=== PATIENT | male | born 2000 | race Caucasian/White ===

== ENCOUNTER 2019-02-01 14:05 | Emergency (ER) | payer MEDICAID ==
[2019-02-01] MEDS ORDERED: LIDOCAINE 1% 2 ML VIAL MC ONE (15:23)
[2019-02-01] MEDS ORDERED: cefTRIAXone 1 GM VIAL IM STA (15:23)
--- NOTE | 2019-02-01 15:26 | ED Physician Documentation ---
History of Present Illness - Stated complaint Stated Complaint: FOOT INFECTION - Chief complaint Chief Complaint: Ext Problem - History obtained from History obtained from: Patient - History of Present Illness Timing: How many days ago (3) - Additonal information Additional information: The patient is a 18-year-old male who presents with pain and swelling of his right ankle, gradually increasing over the past 3 days. He denies any traumatic injury. He has noticed redness and swelling at the lateral aspect of the ankle. It has become increasingly painful to bear weight on his right foot. He denies fever or shortness of breath. He denies history of similar symptoms in the past. He is not diabetic. He denies IV drug use, and has no history of MRSA. Review of Systems Constitutional: denies: Fever Nose: denies: Congestion Throat: denies: Sore throat Cardiac: denies: Chest pain / pressure Respiratory: denies: Dyspnea, Cough GI: denies: Abdominal Pain, Nausea, Vomiting : denies: Dysuria Skin: reports: Abrasion (s) (Right ankle.) Musculoskeletal: reports: Extremity pain (Right foot and ankle.) Neurologic: denies: Focal weakness, Numbness, Headache PD PAST MEDICAL HISTORY - Past Medical History Endocrine/Autoimmune: None Psych: ADD/ADHD - Past Surgical History Past Surgical History: Yes Ortho: Other (right wrist) - Present Medications Home Medications: Ambulatory Orders Medication Instructions Recorded Confirmed Ibuprofen [Ibu] 800 mg PO TID PRN #30 tablet 02/01/19 cephALEXin [Cephalexin] 500 mg PO QID #28 tablet 02/01/19 - Allergies Allergies/Adverse Reactions: Allergies Allergy/AdvReac Type Severity Reaction Status Date / Time amoxicillin [Amoxicillin] Allergy Rash Verified 02/01/19 14:24 - Social History Does the pt smoke?: No Smoking Status: Never smoker Does the pt drink ETOH?: No Does the pt have substance abuse?: No - Immunizations Immunizations are current?: Yes - POLST Patient has POLST: No PD ED PE NORMAL - Vitals Vital signs reviewed: Yes (Normal) - General General: Alert and oriented X 3, Well developed/nourished - HEENT HEENT: Atraumatic, Pharynx benign - Neck Neck: No adenopathy - Cardiac Cardiac: RRR - Respiratory Respiratory: No respiratory distress, Clear bilaterally - Abdomen Abdomen: Soft, Non tender - Back Back: No CVA TTP - Derm Derm: No rash - Extremities Extremities: No calf tenderness / cord, Other (There is erythema and slight swelling at the lateral aspect of the right ankle, with associated tenderness to palpation. There is a superficial abrasion. Distal neurovascular is intact.) - Neuro Neuro: Alert and oriented X 3, No motor deficit, No sensory deficit Results - Vitals Vitals: Vital Signs - 24 hr 02/01/19 02/01/19 14:19 15:46 Temperature 36.7 C Heart Rate 95 87 Respiratory 18 16 Rate Blood Pressure 126/67 115/76 O2 Saturation 99 100 Oxygen O2 Source Room air PD MEDICAL DECISION MAKING - ED course Complexity details: re-evaluated patient, considered differential, d/w patient ED course: The patient's presentation is most consistent with superficial cellulitis right ankle, with associated abrasion. There is no evidence of abscess or lymphangitic streaking. Treatment in the emergency room included administration of ceftriaxone 1 g IM. He is being discharged with prescription for cephalexin. I discussed with him the expected course of illness, antibiotic treatment and outpatient follow-up, as well as potentially worrisome signs or symptoms that should prompt reevaluation in the emergency department. Departure - Departure Disposition: Home, Self Care Clinical Impression: Cellulitis Qualifiers: Site of cellulitis: extremity Site of cellulitis of extremity: lower extremity Laterality: right Qualified Code(s): L03.115 - Cellulitis of right lower limb Condition: Stable Instructions: ED Infec Skin Cellulitis Follow-Up: [facility] [Provider Group] Prescriptions: cephALEXin [Cephalexin] 500 mg PO QID #28 tablet Ibuprofen [Ibu] 800 mg PO TID PRN #30 tablet PRN Reason: Pain Comments: Keep your right foot elevated as much the time as possible. Take cephalexin 4 times daily as prescribed. You can use ibuprofen up to 800 mg 3 times daily for anti-inflammatory effect. Follow-up with primary physician within 1 week. Call to schedule appointment. Return to the emergency department if you develop increasing redness, swelling, pain, or otherwise worsening symptoms. Discharge Date/Time: 02/01/19 15:53
[2019-02-01] MEDS ORDERED: IBUPROFEN 800 MG TABLET PO STA (15:36)
[2019-02-01 15:48] VITALS: BP 115/76
== END 2019-02-01 15:53 | disposition home or self-care (01) ==
LOC: ED 14:05
DX: S90.511A Abrasion, right ankle, initial encounter (principal); L03.115 Cellulitis of right lower limb
CPT/HCPCS: 96372; 99283; 99284; A9270

== ENCOUNTER 2019-07-16 23:11 | Outpatient (CLI) | payer MEDICAID | END 2019-07-16 23:12 | disposition critical access hospital (66) | LOC: EMS 23:11 | PROVIDERS: ATTEND Surgery | DX: S61.210A Laceration without foreign body of right index finger without damage to nail, initial encounter (principal); W45.8XXA Other foreign body or object entering through skin, initial encounter | CPT/HCPCS: A0425; A0429 ==

== ENCOUNTER 2019-07-16 23:28 | Emergency (ER) | payer MEDICAID ==
[2019-07-16 23:33] VITALS: BP 137/73
== END 2019-07-17 00:48 | disposition left against medical advice (07) ==
LOC: EDUNIT# → ED 23:28
DX: Z53.21 Procedure and treatment not carried out due to patient leaving prior to being seen by health care provider (principal)

== ENCOUNTER 2019-09-08 15:40 | Emergency (ER) | payer MEDICAID ==
[2019-09-08] MEDS ORDERED: LIDOCAINE 2%-EPI 1:100000 20 ML MDV SUBQ STA (16:32)
[2019-09-08] MEDS ORDERED: oxyCODONE 5 MG TABLET PO STA (16:32)
[2019-09-08] MEDS ORDERED: cephALEXin 250 MG CAPSULE PO STA (16:32)
[2019-09-08] MEDS ORDERED: SULFAMETH/TRIMETH DS 800/160 MG TABLET PO STA (16:32)
[2019-09-08] MEDS ORDERED: TETANUS/DIPHTHERIA/PERTUSSIS 0.5 ML SYRINGE IM ONE (16:34)
--- NOTE | 2019-09-08 16:34 | ED Physician Documentation ---
History of Present Illness - Stated complaint Stated Complaint: LT LEG PX - Chief complaint Chief Complaint: Wound - History obtained from History obtained from: Patient - History of Present Illness Timing: How many days ago (several days) Pain level max: 6 Pain level now: 5 - Additonal information Additional information: L leg wound for past several days, increasing redness, swelling. no drainage. No fevers. No nausea or vomiting. No abdominal pain. Denies any IV drug use. Denies any IM/SQ drug use. Review of Systems Constitutional: denies: Fever, Chills GI: denies: Vomiting, Diarrhea Skin: denies: Rash Neurologic: denies: Headache PD PAST MEDICAL HISTORY - Past Medical History Past Medical History: Yes Endocrine/Autoimmune: None Psych: ADD/ADHD - Past Surgical History Past Surgical History: Yes Ortho: Other (right wrist) - Present Medications Home Medications: Ambulatory Orders Medication Instructions Recorded Confirmed Cephalexin [Keflex] 500 mg PO Q6H #28 capsule 09/08/19 Sulfamethox/Trimeth 800/160 1 each PO BID #14 tablet 09/08/19 [Bactrim Ds 800/160] - Allergies Allergies/Adverse Reactions: Allergies Allergy/AdvReac Type Severity Reaction Status Date / Time amoxicillin [Amoxicillin] Allergy Rash Verified 07/16/19 23:29 - Social History Does the pt smoke?: No Smoking Status: Never smoker Does the pt drink ETOH?: No Does the pt have substance abuse?: No - Immunizations Immunizations are current?: Yes - POLST Patient has POLST: No PD ED PE NORMAL - Vitals Vital signs reviewed: Yes - General General: Alert and oriented X 3, No acute distress - HEENT HEENT: Moist mucous membranes - Neck Neck: Supple, no meningeal sign - Derm Derm: Warm and dry - Extremities Extremities: Other (L thigh - 9x9 cm area erythema with central induration. NVI. no drainage. ) - Neuro Neuro: Alert and oriented X 3 Results - Vitals Vitals: Vital Signs - 24 hr 09/08/19 09/08/19 15:54 17:10 Temperature 37.4 C 36.8 C Heart Rate 97 105 H Respiratory 18 16 Rate Blood Pressure 129/65 126/55 L O2 Saturation 100 98 Oxygen O2 Source Room air Procedures - Abscess I&D (location) L thigh Preparation: Confirmed with ultrasound, Chlorhexadine, Alcohol, Lidocaine 2 %, With epi Incision: Incised with scalpel, Purulent drainage, Culture obtained Other: Pt tolerated well, Antibiotic prescribed PD MEDICAL DECISION MAKING - ED course Complexity details: considered differential, d/w patient, d/w family ED course: 18-year-old male with an abscess to the thigh. This is incised and drained. Tolerated well. Significant cellulitis. Will place on oral antibiotics as well. Patient is well-appearing, nontoxic. Afebrile. Patient counseled regarding signs and symptoms for which I believe and urgent re-evaluation would be necessary. Patient with good understanding of and agreement to plan and is comfortable going home at this time This document was made in part using voice recognition software. While efforts are made to proofread this document, sound alike and grammatical errors may occur. Departure - Departure Disposition: 01 Home, Self Care Clinical Impression: Abscess Cellulitis Qualifiers: Site of cellulitis: extremity Site of cellulitis of extremity: lower extremity Laterality: left Qualified Code(s): L03.116 - Cellulitis of left lower limb Condition: Good Instructions: ED Abscess IandD, ED Infec Skin Cellulitis Follow-Up: your,doctor in 1 week [Other] Prescriptions: Cephalexin [Keflex] 500 mg PO Q6H #28 capsule Sulfamethox/Trimeth 800/160 [Bactrim Ds 800/160] 1 each PO BID #14 tablet Comments: Return if you worsen. Take all antibiotics until gone. Keep the area clean. Discharge Date/Time: 09/08/19 17:16
[2019-09-08 17:10] VITALS: BP 126/55
== END 2019-09-08 17:16 | disposition home or self-care (01) ==
LOC: ED 15:40
DX: L02.416 Cutaneous abscess of left lower limb (principal); L03.116 Cellulitis of left lower limb
CPT/HCPCS: 10060; 90471; 90715; 99283; 99284; A9270

== ENCOUNTER 2019-09-29 10:06 | Observation (INO) | payer MEDICAID ==
[2019-09-29] MEDS ORDERED: oxyCODONE 5 MG TABLET PO STA (10:17)
[2019-09-29] MEDS ORDERED: IBUPROFEN 800 MG TABLET PO STA (10:17)
--- NOTE | 2019-09-29 10:22 | ED Physician Documentation ---
PD HPI MAJOR TRAUMA - Stated complaint Stated Complaint: RIB PX - History obtained from History obtained from: Patient - History of Present Illness Mechanism of injury: Blow (Previously healthy 18-year-old gentleman fell while skateboarding earlier this morning and sustained injuries to the right lateral lower chest wall and right upper abdomen. No other injuries. No head or neck injury. Pain is severe. Pain is worse if he takes a deep breath. Tetanus is up-to-date.) Review of Systems Constitutional: denies: Fever, Chills Ears: denies: Loss of hearing, Ear pain Nose: denies: Rhinorrhea / runny nose, Congestion Throat: denies: Sore throat Cardiac: reports: Chest pain / pressure. denies: Palpitations Respiratory: denies: Dyspnea, Cough PD PAST MEDICAL HISTORY - Past Medical History Endocrine/Autoimmune: None Psych: ADD/ADHD - Past Surgical History Past Surgical History: Yes Ortho: Other (right wrist) - Allergies Allergies/Adverse Reactions: Allergies Allergy/AdvReac Type Severity Reaction Status Date / Time amoxicillin [Amoxicillin] Allergy Rash Verified 09/29/19 10:22 - Social History Does the pt smoke?: No Smoking Status: Never smoker Does the pt drink ETOH?: No Does the pt have substance abuse?: No - Immunizations Immunizations are current?: Yes - POLST Patient has POLST: No PD ED PE NORMAL - Vitals Vital signs reviewed: Yes - General General: Alert and oriented X 3, No acute distress - HEENT HEENT: PERRL, EOMI - Neck Neck: Supple, no meningeal sign, No bony TTP - Cardiac Cardiac: RRR, No murmur - Respiratory Respiratory: Other (Relatively symmetric breath sounds but diminished because of splinting, there is a abrasion on the right lateral low chest wall/upper abdomen and he is tender in the right upper quadrant.) - Abdomen Abdomen: Normal bowel sounds, Soft - Back Back: No CVA TTP, No spinal TTP - Derm Derm: Normal color, Warm and dry - Extremities Extremities: No deformity, No tenderness to palpate, Normal ROM s pain, No edema, No calf tenderness / cord - Neuro Neuro: Alert and oriented X 3, Normal speech Results - Vitals Vitals: Vital Signs - 24 hr 09/29/19 09/29/19 10:12 11:11 Temperature 36.9 C Heart Rate 83 83 Respiratory 16 15 Rate Blood Pressure 120/69 120/78 O2 Saturation 100 100 Oxygen O2 Source Room air - Labs Labs: Laboratory Tests 09/29/19 09/29/19 09/29/19 10:45 11:15 11:15 WBC 6.0 RBC 4.30 L Hgb 13.4 L Hct 40.8 L MCV 94.9 H MCH 31.2 H MCHC 32.8 RDW 12.6 Plt Count 173 MPV 9.1 Neut # (Auto) 4.2 Lymph # (Auto) 1.2 L [place] # (Auto) 0.6 Eos # (Auto) 0.1 Baso # (Auto) 0.0 Absolute Nucleated RBC 0.00 Nucleated RBC % 0.0 Sodium 131 L Potassium 3.3 L Chloride 100 L Carbon Dioxide 24 Anion Gap 7.0 BUN 15 Creatinine 1.0 Estimated GFR (MDRD) 96 Glucose 103 H Calcium 8.6 Total Bilirubin 0.3 AST 48 H ALT 41 Alkaline Phosphatase 53 Total Protein 6.5 L Albumin 3.9 Globulin 2.6 Albumin/Globulin Ratio 1.5 Lipase 20 L Blood Type A POSITIVE Antibody Screen NEGATIVE - Rads (name of study) CT chest abdomen and pelvis Radiology: EMP read contemporaneously (Grade 1 liver laceration with some bleeding near 2 broken ribs, ninth and 10th. No pneumothorax.) PD MEDICAL DECISION MAKING - ED course ED course: 18-year-old healthy gentleman with small liver laceration and rib fracture from a fall from a skateboard. No evidence of head or neck or other injury. Spoke with Dr. Danielle, the on-call surgeon for observation at 11:20 AM. Departure - Departure Disposition: ED Place in Observation Clinical Impression: Liver laceration Qualifiers: Encounter type: initial encounter Qualified Code(s): S36.113A - Laceration of liver, unspecified degree, initial encounter Rib fracture Qualifiers: Encounter type: initial encounter Rib fracture type: multiple ribs Fracture type: closed Laterality: right Qualified Code(s): S22.41XA - Multiple fractures of ribs, right side, initial encounter for closed fracture Condition: Stable
[2019-09-29] MEDS ORDERED: IOVERSOL 320 100 ML VIAL IVP ONE ×2 (10:47→11:35)
[2019-09-29 11:22] LABS: BASOPHILS % (AUTO) 0.5 %; EOSINOPHILS # (AUTO) 0.1 10^3/uL (0.0-0.7); HGB - HEMOGLOBIN 13.4 g/dL (14.0-18.0); LYMPHOCYTES # (AUTO) 1.2 10^3/uL (1.5-3.5); LYMPHOCYTES % (AUTO) 19.4 %; MEAN CORPUSCULAR HEMOGLOBIN 31.2 pg (27.0-31.0); MEAN CORPUSCULAR HGB CONC 32.8 g/dL (32.0-36.0); MEAN CORPUSCULAR VOLUME 94.9 fL (80.0-94.0); MEAN PLATELET VOLUME 9.1 fL (7.4-11.4); MONOCYTES # (AUTO) 0.6 10^3/uL (0.0-1.0); MONOCYTES % (AUTO) 9.1 %; NEUTROPHILS # (AUTO) 4.2 10^3/uL (1.5-6.6); NEUTROPHILS % (AUTO) 69.7 %; PLT - PLATELET COUNT 173 10^3/uL (130-450); RED CELL DISTRIBUTION WIDTH 12.6 % (12.0-15.0)
[2019-09-29 11:35] LABS: ALBUMIN 3.9 g/dL (3.2-5.5); ALBUMIN/GLOBULIN RATIO 1.5 (1.0-2.2); BILIRUBIN,TOTAL 0.3 mg/dL (0.2-1.0); CALCIUM 8.6 mg/dL (8.5-10.3); TOTAL PROTEIN 6.5 g/dL (6.7-8.2)
--- NOTE | 2019-09-29 12:07 | CT Report ---
Reason: Right chest wall and abdominal trauma Procedure Date: 09/29/2019 Accession Number: [id number] / [id number] Procedure: CT - Abdomen/Pelvis W CPT Code: Final Report FULL RESULT: EXAM: CT CHEST, ABDOMEN AND PELVIS EXAM DATE: 09/29/2019 11:18 AM. CLINICAL HISTORY: Right chest wall and abdominal trauma. COMPARISONS: CHEST W/ 09/29/2019 10:56 AM. TECHNIQUE: Routine helical CT imaging was performed through the chest, abdomen, and pelvis. IV contrast: 100 mL Optiray 320. Enteric contrast: No. Reconstructions: Coronal and sagittal. In accordance with CT protocol optimization, one or more of the following dose reduction techniques were utilized for this exam: automated exposure control, adjustment of mA and/or KV based on patient size, or use of iterative reconstructive technique. FINDINGS: Lungs/Pleura: Small amount of dependent changes at the right lung base. No nodules, bronchial thickening, consolidation, or edema. Pulmonary vasculature is normal. No effusions or pneumothorax. Mediastinum: Normal. No adenopathy or masses. Liver: Grade 1 laceration without convincing evidence of active extravasation along the lateral aspect of the right lobe. Gallbladder/Bile Ducts: Unremarkable. Spleen: Normal. Pancreas: Normal. Adrenal Glands: Normal. Kidneys: Normal. No masses or hydronephrosis. Peritoneal Cavity/Bowel: Normal. No free fluid, free air or adenopathy. No masses or acute inflammatory process. Pelvic Organs: Normal. The bladder and visualized pelvic organs are within normal limits. Vasculature: No great vessel injury. There is active extravasation of contrast along the superficial surface within the lateral abdominal wall musculature near the tip of the right 11th rib. No significant associated hematoma is seen as yet. Bones: Fractures of the lateral 9th and 10th right ribs, minimally displaced. Other: None. IMPRESSION: Grade 1 liver laceration. Active extravasation of contrast along the lateral musculoskeletal chest wall near the anterior portion of the 11th rib, no significant hematoma at this site as yet. Minimally displaced fractures of the lateral right 9th and 10th ribs. CRITICAL RESULT: The findings were discussed with Dr. Grullon on 09/29/2019 at 11:20 AM, real-time interpretation and communication during imaging acquisition with decision to obtain delay scans. [facility]
[2019-09-29] MEDS ORDERED: HYDROmorphone 1 MG/ML CARPUJECT IVP STA (12:37)
--- NOTE | 2019-09-29 12:47 | HISTORY & PHYSICAL EXAMINATION ---
Chief Complaint - Chief Complaint Chief Complaint: Right chest pain History of Present Illness - Admitted From Admitted From:: ED - History Obtained From Records Reviewed: Provider's notes History obtained from: Patient and providers Exam Limitations: Patient has recieved pain medication and is lethergic - History of Present Illness HPI Comment/Other: Healthy 18 year old man who was riding a skate board this AM when he fell, striking his chest. Did not strike his head. Denies any loss of consciousness. Arrived complaining of right lower rib pain. Evaluation in the ED revealed a small liver laceration and a right rib fracture. I have been consulted for management. 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 : reports: None HEENT: reports: None Psych: reports: ADD/ADHD Musculoskeletal: reports: None Derm: reports: None MRSA Hx?: No - Past Surgical History Ortho: reports: Other (right wrist) - POLST Patient has POLST: No Meds/Allgy - Allergies Allergies/Adverse Reactions: Allergies Allergy/AdvReac Type Severity Reaction Status Date / Time amoxicillin [Amoxicillin] Allergy Rash Verified 09/29/19 10:22 Review of Systems - Constitutional Constitutional: denies: Fatigue, Fever, Chills - Eyes Eyes: denies: Pain, Irritation, Amaurosis, Blurred vision - Ears, Nose & Throat Ears, Nose & Throat: denies: Tinnitus, Vertigo - Cardiovascular Cariovascular: reports: Chest pain. denies: Irregular heart rate, Palpitations, Syncope - Respiratory Respiratory: denies: Cough, Wheezing - Gastrointestinal Gastrointestinal: reports: Abdominal pain - Genitourinary Genitourinary: denies: Dysuria - Musculoskeletal Musculoskeletal: denies: Muscle pain, Back pain - Integumentary Integumentary: denies: Rash - Hematologic/Lymphatic Hematologic/Lymphatic: denies: Anemia - All Other Systems All Other Systems: reports: Reviewed and negative Exam - Vital Signs Reviewed Vital Signs: Yes Vital Signs: Vital Signs x48h Temp Pulse Resp BP Pulse Ox 09/29/19 12:20 77 15 121/67 99 09/29/19 11:11 83 15 120/78 100 09/29/19 10:12 36.9 C 83 16 120/69 100 - Physical Exam General Appearance: positive: No acute distress, Lethargic Eyes Bilateral: positive: Normal inspection, PERRL, EOMI ENT: positive: ENT inspection nml, Pharynx nml, No signs of dehydration Neck: positive: Nml inspection, Thyroid nml, No JVD Respiratory: positive: Breath sounds nml, Other (Chest is tender to palpation along the lower rib margin at mid axillary line on the right. No crepitance.) Cardiovascular: positive: Regular rate & rhythm, No murmur Peripheral Pulses: positive: 2+ Abdomen: positive: Non-tender Back: positive: CVA tenderness (R). negative: CVA tenderness (L) Conclusion/Plan - Problem List (1) Liver laceration Conclusion/Plan: Hemodynamically stable and pain is currently under control. Admit for observation and serial H/H. Will plan for discharge in the AM if he remains stable overnight and we are able to control his discomfort Qualifiers: Encounter type: initial encounter Qualified Code(s): S36.113A - Laceration of liver, unspecified degree, initial encounter - Lab Results Fish Bones: 09/29/19 11:15 09/29/19 11:15 - Diagnostic Imaging Results Diagnostic Imaging Results: positive: Final report reviewed, Discussed with rad iologist Diagnostic Imaging Results Comments: Final Report PT NAME: CORIE KESSLER MR#: [id number] REG ER/ED AGE: 18 CI DT/TM: 09/29/1907/08/1021 PCP: : 2000 ATT: SEX: M ORD: Christopher song MD EXAM: [id number] CT/ABPEW ([id number]) Reason: Right chest wall and abdominal trauma Procedure Date: 09/29/2019 Accession Number: [id number] / [id number] Procedure: CT - Abdomen/Pelvis W CPT Code: Final Report FULL RESULT: EXAM: CT CHEST, ABDOMEN AND PELVIS EXAM DATE: 09/29/2019 11:18 AM. CLINICAL HISTORY: Right chest wall and abdominal trauma. COMPARISONS: CHEST W/ 09/29/2019 10:56 AM. TECHNIQUE: Routine helical CT imaging was performed through the chest, abdomen, and pelvis. IV contrast: 100 mL Optiray 320. Enteric contrast: No. Reconstructions: Coronal and sagittal. In accordance with CT protocol optimization, one or more of the following dose reduction techniques were utilized for this exam: automated exposure control, adjustment of mA and/or KV based on patient size, or use of iterative reconstructive technique. FINDINGS: Lungs/Pleura: Small amount of dependent changes at the right lung base. No nodules, bronchial thickening, consolidation, or edema. Pulmonary vasculature is normal. No effusions or pneumothorax. Mediastinum: Normal. No adenopathy or masses. Liver: Grade 1 laceration without convincing evidence of active extravasation along the lateral aspect of the right lobe. Gallbladder/Bile Ducts: Unremarkable. Spleen: Normal. Pancreas: Normal. Adrenal Glands: Normal. Kidneys: Normal. No masses or hydronephrosis. Peritoneal Cavity/Bowel: Normal. No free fluid, free air or adenopathy. No masses or acute inflammatory process. Pelvic Organs: Normal. The bladder and visualized pelvic organs are within normal limits. Vasculature: No great vessel injury. There is active extravasation of contrast along the superficial surface within the lateral abdominal wall musculature near the tip of the right 11th rib. No significant associated hematoma is seen as yet. Bones: Fractures of the lateral 9th and 10th right ribs, minimally displaced. Other: None. IMPRESSION: Grade 1 liver laceration. Active extravasation of contrast along the lateral musculoskeletal chest wall near the anterior portion of the 11th rib, no significant hematoma at this site as yet. Minimally displaced fractures of the lateral right 9th and 10th ribs. CRITICAL RESULT: The findings were discussed with Dr. Grullon on 09/29/2019 at 11:20 AM, real-time interpretation and communication during imaging acquisition with decision to obtain delay scans. [facility] Deck Scaler: Reading Radiologist: Kai Pro MD Releasing Radiologist: Kai Pro MD Released Date Time: 09/29/191202 Report 120 cc: Christopher Grullon MD ED
[2019-09-29] MEDS ORDERED: ONDANSETRON 4 MG/2 ML VIAL IVP PRN (13:04)
[2019-09-29] MEDS ORDERED: SODIUM CHLORIDE FLUSH 0.9% 10 ML SYRINGE IVP PRN (13:04)
[2019-09-29] MEDS: LACTATED RINGERS 1,000 ML IV SCH (15:25)
[2019-09-29] MEDS: SODIUM CHLORIDE FLUSH 0.9% 10 ML SYRINGE IVP SCH ×2 (17:01→21:31)
[2019-09-29] MEDS: PANTOPRAZOLE 40 MG TABLET PO SCH (17:54)
[2019-09-29 18:25] LABS: BASOPHILS % (AUTO) 0.6 %; EOSINOPHILS # (AUTO) 0.2 10^3/uL (0.0-0.7); HGB - HEMOGLOBIN 13.5 g/dL (14.0-18.0); LYMPHOCYTES # (AUTO) 1.6 10^3/uL (1.5-3.5); LYMPHOCYTES % (AUTO) 31.7 %; MEAN CORPUSCULAR HGB CONC 32.6 g/dL (32.0-36.0); MEAN PLATELET VOLUME 8.9 fL (7.4-11.4); MONOCYTES # (AUTO) 0.6 10^3/uL (0.0-1.0); NEUTROPHILS # (AUTO) 2.7 10^3/uL (1.5-6.6); NEUTROPHILS % (AUTO) 53.5 %; PLT - PLATELET COUNT 172 10^3/uL (130-450); RED BLOOD COUNT 4.36 10^6/uL (4.70-6.10); RED CELL DISTRIBUTION WIDTH 12.7 % (12.0-15.0)
[2019-09-29] MEDS: oxyCODONE 5 MG TABLET PO PRN (19:42)
[2019-09-29] MEDS: ACETAMINOPHEN 325 MG TABLET PO PRN (19:42)
[2019-09-29] MEDS: HYDROmorphone 0.5 MG/0.5 ML SYRINGE IVP PRN (23:29)
[2019-09-30] MEDS: ACETAMINOPHEN 325 MG TABLET PO PRN ×2 (01:34→16:20)
[2019-09-30] MEDS: oxyCODONE 5 MG TABLET PO PRN ×3 (01:36→14:54)
[2019-09-30] MEDS: HYDROmorphone 0.5 MG/0.5 ML SYRINGE IVP PRN (04:58)
[2019-09-30 06:01] LABS: HGB - HEMOGLOBIN 13.1 g/dL (14.0-18.0)
[2019-09-30] MEDS: PANTOPRAZOLE 40 MG TABLET PO SCH (06:24)
[2019-09-30] MEDS: SODIUM CHLORIDE FLUSH 0.9% 10 ML SYRINGE IVP SCH ×2 (10:09→14:55)
--- NOTE | 2019-09-30 12:20 | XRAY Report ---
Reason: right rib fractures Procedure Date: 09/30/2019 Accession Number: [id number] / [id number] Procedure: XR - Chest 2 View X-Ray CPT Code: 48135 Final Report FULL RESULT: EXAM: CHEST RADIOGRAPHY EXAM DATE: 09/30/2019 09:23 AM. CLINICAL HISTORY: Right rib fractures. COMPARISON: CHEST W09/29/2019 10:56 AM ABDOMEN/PELVIS W09/29/2019 10:56 AM. TECHNIQUE: 2 views. FINDINGS: Lungs/Pleura: No focal opacities evident. No pleural effusion. No pneumothorax. Normal volumes. Mediastinum: Heart and mediastinal contours are unremarkable. Other: Right 10th lateral rib fracture. The right ninth lateral rib fracture described on the prior CT scan report is not definitely identified on these images. IMPRESSION: Right 10th rib fracture. Right ninth rib fracture not definitely seen. No pneumothorax. Clear lungs. [facility]
[2019-09-30] MEDS: polyethylene glycoL 3350 17 GM PACKET PO SCH (14:53)
[2019-09-30] MEDS: LACTATED RINGERS 1,000 ML IV SCH (14:54)
--- NOTE | 2019-09-30 15:42 | PROVIDER PROGRESS NOTE ---
Subjective - General Admit Date: 09/29/19 - Other Other Information/Narrative: Seen mid-day, very fatigued looking and has not started lunch sitting next to him. He states he has abd pain but has no tenderness on exam. Denies nausea. He states he has no rib or chest pain and is using IS, getting to 2000. Hg stable. Objective - Patient Data Reviewed Vital Signs: Yes Vital Signs: Vital Signs x48h Temp Pulse Pulse Resp BP Pulse Ox 09/30/19 12:50 36.8 C 64 16 109/59 L 97 09/30/19 12:27 36.5 C 67 17 100 09/30/19 08:37 36.5 C 65 17 103/54 L 99 Weight: Weight 09/28/19 09/29/19 09/30/19 23:59 23:59 23:59 Weight (kg) 76 kg Intake & Output: Intake and Output Totals x24h 09/28/19 09/29/19 09/30/19 23:59 23:59 23:59 Intake Total 628.665 2367.833 Output Total 525 Balance 170.658 0145.833 - Lab Results Lab Results: 09/30/19 05:55 09/29/19 11:15 Other Lab Results: Lab Results x24hrs 09/30/19 09/29/19 09/29/19 Range/Units 05:55 18:12 18:12 WBC 5.0 (4.8-10.8) x10^3/uL RBC 4.36 L (4.70-6.10) 10^6/uL Hgb 13.1 L 13.5 L (14.0-18.0) g/dL Hct 41.0 L 41.4 L (42.0-52.0) % MCV 95.0 H (80.0-94.0) fL MCH 31.0 (27.0-31.0) pg MCHC 32.6 (32.0-36.0) g/dL RDW 12.7 (12.0-15.0) % Plt Count 172 (130-450) 10^3/uL MPV 8.9 (7.4-11.4) fL Neut # (Auto) 2.7 (1.5-6.6) 10^3/uL Lymph # (Auto) 1.6 (1.5-3.5) 10^3/uL [place] # (Auto) 0.6 (0.0-1.0) 10^3/uL Eos # (Auto) 0.2 (0.0-0.7) 10^3/uL Baso # (Auto) 0.0 (0.0-0.1) 10^3/uL Absolute Nucleated RBC 0.00 x10^3/uL Nucleated RBC % 0.0 /100WBC Blood Type Recheck A POSITIVE - Current Medications Current Medications: Current Medications Generic Name Dose Route Start Last Admin Trade Name Freq PRN Reason Stop Dose Admin Acetaminophen 650 mg 09/29/19 13:04 09/30/19 01:34 Tylenol PO 650 mg Q4HR PRN Administration PAIN Hydromorphone HCl 0.5 mg 09/29/19 13:04 09/30/19 04:58 Dilaudid Inj Syringe IVP 0.5 mg Q2HR PRN Administration PAIN Lactated Ringer's 1,000 mls @ 50 mls/hr 09/29/19 16:00 09/30/19 14:54 Lr IV 50 mls/hr .Q20H BAO Administration Oxycodone HCl 5 mg 09/29/19 13:04 09/30/19 14:54 Roxicodone PO 5 mg Q4HR PRN Administration PAIN Pantoprazole Sodium 40 mg 09/29/19 16:00 09/30/19 06:24 Protonix PO 40 mg QDAC BAO Administration Polyethylene Glycol 17 gm 09/30/19 14:41 09/30/19 14:53 Miralax PO 17 gm DAILY BAO Administration Sodium Chloride 10 ml 09/29/19 17:00 09/30/19 14:55 Normal Saline Flush 0.9% IVP 10 ml 0100,0900,1700 BAO Administration - Physical Exam Comments/Other: awake and oriented but appears quite fatigued, NAD, male of healthy weight EOMI, MMM unlabored RA soft, nt/nd MAEW Impression/Plan - Problem List Problem List: Grade I Splenic Lac - Hg remains stable, pt remains HDS - states to me he has pain but no reaction on exam - is tolerating diet without pain or nausea Nondisplaced R Rib Frx 9-10 - comfortable on RA - using IS with decent results - pain controlled; narcotics seem to hit him hard per reports so will focus on other modalities given his extreme fatigue currently and as he has no help at home, will keep overnight to work on pain med regimen
[2019-09-30] MEDS: IBUPROFEN 600 MG TABLET PO SCH (17:57)
[2019-10-01] MEDS: IBUPROFEN 600 MG TABLET PO SCH ×5 (00:40→14:06)
[2019-10-01] MEDS: SODIUM CHLORIDE FLUSH 0.9% 10 ML SYRINGE IVP SCH ×2 (04:17→08:08)
[2019-10-01] MEDS: oxyCODONE 5 MG TABLET PO PRN ×2 (05:12→09:18)
[2019-10-01] MEDS: polyethylene glycoL 3350 17 GM PACKET PO SCH (08:08)
[2019-10-01] MEDS ORDERED: polyethylene glycoL 3350 17 GM PACKET PO SCH (09:00)
[2019-10-01] MEDS: LACTATED RINGERS 1,000 ML IV SCH (10:10)
[2019-10-01] MEDS ORDERED: HYDROcod/ACETAM 5/325 MG TABLET PO PRN (10:29)
--- NOTE | 2019-10-01 10:34 | PROVIDER PROGRESS NOTE ---
Subjective - General Admit Date: 09/29/19 - Review of Systems All Other Systems: positive: Reviewed and negative - Other Other Information/Narrative: Still tired, per RN has been up to eat (with strong encouragement) but ate well and has walked around without assistance. Pain generally controlled. Objective - Patient Data Reviewed Vital Signs: Yes Vital Signs: Vital Signs x48h Temp Pulse Resp BP Pulse Ox 10/01/19 08:08 36.6 C 62 16 116/63 100 10/01/19 03:30 36.4 C L 58 L 16 100/42 L 97 Weight: Weight 09/29/19 09/30/19 10/01/19 23:59 23:59 23:59 Weight (kg) 76 kg Intake & Output: Intake and Output Totals x24h 09/29/19 09/30/19 10/01/19 23:59 23:59 23:59 Intake Total 946.957 6377.500 812.493 Output Total 525 150 Balance 786.491 7402.500 812.493 - Lab Results Lab Results: 09/30/19 05:55 09/29/19 11:15 - Current Medications Current Medications: Current Medications Generic Name Dose Route Start Last Admin Trade Name Freq PRN Reason Stop Dose Admin Acetaminophen 650 mg 09/29/19 13:04 09/30/19 16:20 Tylenol PO 650 mg Q4HR PRN Administration PAIN Ibuprofen 600 mg 09/30/19 18:00 10/01/19 08:12 Motrin PO 600 mg Q6HR BAO Administration Polyethylene Glycol 17 gm 09/30/19 14:41 10/01/19 08:08 Miralax PO 17 gm DAILY BAO Administration Sodium Chloride 10 ml 09/29/19 17:00 10/01/19 08:08 Normal Saline Flush 0.9% IVP 10 ml 0100,0900,1700 BAO Administration - Physical Exam Comments/Other: awake and oriented but eyes closed to rest even while talking, NAD, male of healthy weight EOMI, MMM unlabored RA soft, nt/nd MAEW Impression/Plan - Problem List Problem List: Grade I Splenic Lac - Hg remains stable, pt remains HDS - is tolerating diet without pain or nausea Nondisplaced R Rib Frx 9-10 - comfortable on RA - using IS with decent results - pain controlled; narcotics seem to hit him hard per reports so added scheduled ibuprofen, changed prn oxy 5mg to norco 5/325 - ambulate, OOB social work to help with discharge planning, concern that pt does not have a stable situation for safe discharge
[2019-10-01 14:24] VITALS: BP 109/70
--- NOTE | 2019-10-01 14:35 | DISCHARGE SUMMARY ---
Discharge Summary Admit Date: 09/29/19 Discharge Date: 10/01/19 Discharging Provider: MD Joseph Code Status: Attempt Resuscitation Condition at Discharge: Good Discharge Disposition: 01 Home, Self Care - DIAGNOSES Admission Diagnoses: rib fractures, splenic lac Discharge Diagnoses with Status of Each Condition: rib fractures- good grade I splenic lac- good - HPI History of Present Illness: 18yo M s/p fall from skateboard with two nondisplaced rib fractures and a grade I splenic lac. Admitted and monitored for bleeding but Hg remained stable and he quickly tolerated a regular diet. Pain control and pulm toilet for rib fractures, pt did well. - HOSPITAL COURSE Hospital Course: as above - ALLERGIES Allergies/Adverse Reactions: Allergies Allergy/AdvReac Type Severity Reaction Status Date / Time amoxicillin [Amoxicillin] Allergy Rash Verified 09/29/19 10:22 - MEDICATIONS Home Medications: Ambulatory Orders Medication Instructions Recorded Confirmed Docusate Sodium 100 mg PO BID #60 capsule 10/01/19 HYDROcod/ACETAM 5/325 [[place] 5/325] 1 each PO Q6H PRN #30 tablet 10/01/19 Ibuprofen 800 mg PO TID #60 tablet 10/01/19 - LABS Result Diagrams: 09/30/19 05:55 09/29/19 11:15 - FOLLOW UP Follow Up: prn - TIME SPENT Time Spent in Discharge (Minutes): 20
== END 2019-10-01 15:09 | disposition home or self-care (01) ==
LOC: ED 10:06 → MS2 13:04
PROVIDERS: ADMIT Surgery; ATTEND Surgery
DX: S36.114A Minor laceration of liver, initial encounter (principal); S22.41XA Multiple fractures of ribs, right side, initial encounter for closed fracture; Y93.51 Activity, roller skating (inline) and skateboarding; Y92.9 Unspecified place or not applicable; Y99.8 Other external cause status; F90.9 Attention-deficit hyperactivity disorder, unspecified type
CPT/HCPCS: 36415; 71046; 71260; 74177; 80053; 83690; 85014; 85018; 85025; 86850; 86900; 86901; 96361; 96374; 96376; 99284; 99285; A9270; G0378; J1170; J7120; Q9967

== ENCOUNTER 2019-10-17 05:06 | Emergency (ER) | payer MEDICAID ==
[2019-10-17 05:12] VITALS: BP 120/71
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
== END 2019-10-17 05:34 | disposition home or self-care (01) ==
LOC: ED 05:06
DX: S61.211A Laceration without foreign body of left index finger without damage to nail, initial encounter (principal); W26.0XXA Contact with knife, initial encounter; Y93.89 Activity, other specified; Y92.009 Unspecified place in unspecified non-institutional (private) residence as the place of occurrence of the external cause; F17.200 Nicotine dependence, unspecified, uncomplicated
CPT/HCPCS: 12001; 99281; 99282

== ENCOUNTER 2020-03-13 07:12 | Outpatient (CLI) | payer MEDICAID | END 2020-03-13 07:13 | disposition EMS.NT | LOC: EMS 07:12 | PROVIDERS: ATTEND Surgery | DX: S01.111A Laceration without foreign body of right eyelid and periocular area, initial encounter (principal); Y04.2XXA Assault by strike against or bumped into by another person, initial encounter; Y92.039 Unspecified place in apartment as the place of occurrence of the external cause ==

== ENCOUNTER 2020-03-13 07:49 | Outpatient (CLI) | payer MEDICAID | END 2020-03-13 07:50 | disposition short-term general hospital (02) | LOC: EMS 07:49 | PROVIDERS: ATTEND Surgery | DX: S09.90XA Unspecified injury of head, initial encounter (principal); S60.511A Abrasion of right hand, initial encounter; Y04.2XXA Assault by strike against or bumped into by another person, initial encounter; Y92.039 Unspecified place in apartment as the place of occurrence of the external cause | CPT/HCPCS: A0425; A0429; A0999 ==

== ENCOUNTER 2020-04-25 08:41 | Emergency (ER) | payer MEDICAID ==
[2020-04-25] MEDS ORDERED: BUFFERED LIDOCAINE 10 ML SYRINGE SUBQ STA (09:09)
--- NOTE | 2020-04-25 09:12 | ED Physician Documentation ---
PD HPI HEENT - Stated complaint Stated Complaint: RT CHEEK SWELLING/PX - Chief complaint Chief Complaint: Wound - History obtained from History obtained from: Patient - History of Present Illness Timing - onset: How many days ago (4) Timing - duration: Days (4) Timing - details: Gradual onset, Still present Location: Tooth Improves: Medication Worsens: Swalllowing Associated symptoms: Fever, Facial swelling. No: Congestion Similar symptoms before: Has not had sx before Recently seen: Not recently seen - Additional information Additional information: Previously well 19-year-old male with bad teeth has developed swelling to the right side of his face and severe pain associated with this this is progressively worsened over the last 4 days. He has pain to actual both sides of his mouth and has carious and broken teeth bilaterally on the bottom half. He had fever briefly last night. Review of Systems Constitutional: reports: Fever Eyes: denies: Decreased vision Ears: denies: Ear pain Nose: denies: Rhinorrhea / runny nose, Congestion Throat: reports: Dental pain / toothache Respiratory: denies: Dyspnea, Cough GI: denies: Vomiting PD PAST MEDICAL HISTORY - Past Medical History Cardiovascular: None Respiratory: None Neuro: None Endocrine/Autoimmune: None GI: None BRICK BURNER: None : None HEENT: None Psych: ADD/ADHD Musculoskeletal: None Derm: None - Past Surgical History Past Surgical History: Yes Ortho: Other - Present Medications Home Medications: Ambulatory Orders Medication Instructions Recorded Confirmed Ibuprofen 800 mg PO TID PRN 10/17/19 Clindamycin HCl [Clindamycin 300MG 300 mg PO Q6H #28 capsule 04/25/20 CAP] Hydrocodone/Acetaminophen 1 - 2 each PO Q6H PRN #14 tablet 04/25/20 [Hydrocodone-Acetamin 5-325 mg] - Allergies Allergies/Adverse Reactions: Allergies Allergy/AdvReac Type Severity Reaction Status Date / Time amoxicillin [Amoxicillin] Allergy Rash Verified 09/29/19 10:22 - Social History Does the pt smoke?: Yes Smoking Status: Current every day smoker Does the pt drink ETOH?: No Does the pt have substance abuse?: No - Immunizations Immunizations are current?: Yes - POLST Patient has POLST: No PD ED PE NORMAL - Vitals Vital signs reviewed: Yes - General General: Alert and oriented X 3, Well developed/nourished, Other (Appears to be in pain with astro technician tone and flattened affect) - HEENT HEENT: Atraumatic, PERRL, EOMI, Other (Multiple carious teeth are present on the lower jaw and there is significant swelling to the buccal recess on the right side the area is firm and tender and bedside ultrasound demonstrates presence of loculated fluid.) - Neck Neck: Supple, no meningeal sign, No bony TTP - Respiratory Respiratory: No respiratory distress - Derm Derm: Normal color, Warm and dry, No rash - Extremities Extremities: No deformity, No edema, No calf tenderness / cord - Neuro Neuro: Alert and oriented X 3, pharmacology teacher 2-12 intact, No motor deficit, No sensory deficit, Normal speech Eye Opening: Spontaneous Motor: Obeys Commands Verbal: Oriented GCS Score: 15 - Psych Psych: Other (Mood is defeated and the affect is flat) Results - Vitals Vitals: Vital Signs - 24 hr 04/25/20 04/25/20 08:50 09:41 Temperature 36.6 C Heart Rate 66 73 Respiratory 18 16 Rate Blood Pressure 116/68 117/94 H O2 Saturation 100 99 Oxygen O2 Source Room air Procedures - Abscess I&D (location) right buccal recess Preparation: Confirmed with ultrasound, Lidocaine 1%, Other (20% benzocaine) Incision: Needle aspiration, Purulent drainage Other: Antibiotic prescribed - Bedside sono Bedside sono by EMP: With the use of bedside ultrasound the right jaw is imaged and there does appear to be fluid present in the buccal recess. PD MEDICAL DECISION MAKING - ED course Complexity details: reviewed results, re-evaluated patient, considered differential, d/w patient ED course: 19-year-old male allergic to amoxicillin with carious teeth and an abscess in the buccal recess on the right side. The abscess to the right buccal recess is addressed with 20% benzocaine followed by 1% lidocaine injected and aspiration with an 18-gauge needle. Departure - Departure Disposition: 01 Home, Self Care Clinical Impression: Dental abscess Condition: Stable Instructions: ED Abscess IandD, ED Abscess Dental Follow-Up: [facility] [Provider Group] Prescriptions: Clindamycin HCl [Clindamycin 300MG CAP] 300 mg PO Q6H #28 capsule Hydrocodone/Acetaminophen [Hydrocodone-Acetamin 5-325 mg] 1 - 2 each PO Q6H PRN #14 tablet PRN Reason: Pain
[2020-04-25] MEDS ORDERED: CLINDAMYCIN 300 MG/2 ML VIAL IM STA (09:32)
[2020-04-25] MEDS ORDERED: HYDROmorphone 1 MG/ML CARPUJECT IM STA (09:35)
[2020-04-25] MEDS ORDERED: ONDANSETRON ODT 4 MG TABLET TL STA (09:35)
[2020-04-25 10:04] VITALS: BP 122/80
== END 2020-04-25 10:09 | disposition home or self-care (01) ==
LOC: ED 08:41
DX: K12.2 Cellulitis and abscess of mouth (principal); K02.9 Dental caries, unspecified; F17.200 Nicotine dependence, unspecified, uncomplicated; Z88.0 Allergy status to penicillin
CPT/HCPCS: 41800; 96372; 99283; 99284; J1170; Q0162

== ENCOUNTER 2020-09-15 15:58 | Emergency (ER) | payer MEDICAID ==
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
[2020-09-15] MEDS ORDERED: ACETAMINOPHEN 325 MG TABLET PO STA (16:21)
[2020-09-15] MEDS ORDERED: IBUPROFEN 600 MG TABLET PO STA (16:21)
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
[2020-09-15 17:12] VITALS: BP 130/75
== END 2020-09-15 17:00 | disposition home or self-care (01) ==
LOC: ED 15:58
DX: S00.03XA Contusion of scalp, initial encounter (principal); S00.83XA Contusion of other part of head, initial encounter; S06.0X1A Concussion with loss of consciousness of 30 minutes or less, initial encounter; Y04.2XXA Assault by strike against or bumped into by another person, initial encounter; F17.200 Nicotine dependence, unspecified, uncomplicated
CPT/HCPCS: 70450; 99282; 99284; A9270

== ENCOUNTER 2022-07-17 00:08 | Emergency (ER) | payer MEDICAID ==
[2022-07-17 00:17] VITALS: BP 131/71
--- NOTE | 2022-07-17 00:21 | ED Physician Documentation ---
History of Present Illness - Stated complaint Stated Complaint: L ARM SWELLING - Chief complaint Chief Complaint: Wound - History obtained from History obtained from: Patient - History of Present Illness Timing: How many days ago (2) Pain level now: 10 Improved by: rest Worsened by: movement,palpation - Additonal information Additional information: HPI is from patient. Patient complains of 2 days of left elbow redness, swelling, pain. This was of gradual onset and at the site where he injected methamphetamines 2 days prior (4 days prior to poncho's presentation).Patient is right-hand dominant. Patient denies having similar symptoms in the past. Patient denies fever. 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 : None HEENT: None Psych: ADD/ADHD Musculoskeletal: None Derm: None - Past Surgical History Past Surgical History: Yes Ortho: Other - Present Medications Home Medications: Ambulatory Orders Medication Instructions Recorded Confirmed HYDROcod/ACETAM 5/325 [[place] 5/325] 1 - 2 tablet PO Q6H PRN #14 tablet 07/17/22 Sulfamethox/Trimeth 800/160 1 each PO BID #19 tablet 07/17/22 [Bactrim Ds 800/160] cephALEXin [Keflex] 500 mg PO Q6H #28 cap 07/17/22 - Allergies Allergies/Adverse Reactions: Allergies Allergy/AdvReac Type Severity Reaction Status Date / Time amoxicillin [Amoxicillin] Allergy Rash Verified 07/17/22 00:17 - Social History Does the pt smoke?: Yes Smoking Status: Current every day smoker Does the pt drink ETOH?: No Does the pt have substance abuse?: Yes Substance Use and Type: Meth - Immunizations Immunizations are current?: Yes - POLST Patient has POLST: No PD ED PE NORMAL - Vitals Vital signs reviewed: Yes - General General: Alert and oriented X 3, No acute distress, Well developed/nourished - Free text exam Free text exam: (THIS IS A FULL NOTE THAT WOULD NOT FIT UNDER "EXTREMITY" EXAM ABOVE) There is no fluctuance nor discharge. There is no obvious puncture wound. There are no palpable for margins, although there are very sharp erythematous margins that are from the distal upper arm (approximately 2 to 3 cm above the elbow), down to 3 cm below the left elbow. This is confluent erythema, it is not circumferential. The swelling, erythema, and tenderness are limited to the anterior surface and, to a lesser extent, the medial and lateral surfaces. Range of motion is limited due to pain; specifically, he is unable to fully extend at the left elbow due to exacerbation of pain when he tries to do so. There is no crepitus nor subcutaneous emphysema on palpation of the elbow. PD ED PE EXPANDED - Extremities Extremities: Limited ROM, Swelling, Red warm joint, Other (The left elbow is swollen, erythematous, hot to touch. There is no fluctuance nor discharge. There is no obvious puncture wound. There are no palpable for margins, although there are very sharp erythematous margins that are from the distal upper arm (approximately 2 to 3 cm above the elbow), down ) Results - Vitals Vitals: Vital Signs - 24 hr 07/17/22 00:14 Temperature 37.1 C Heart Rate 113 H Respiratory 16 Rate Blood Pressure 131/71 H O2 Saturation 100 Oxygen O2 Source Room air PD Medical Decision Making - ED course Complexity details: considered differential, d/w patient ED course: Patient presents with left arm cellulitis with some areas of induration but no visible nor palpable exam findings that would suggest a drainable collection (abscess). He is given IM Rocephin in the emergency department as well as p.o. Bactrim. I provided him with prescriptions for both Bactrim and Keflex. He is also given a take-home pack of Vicodin and provided prescription for short course of Vicodin as well. I discussed with him the inherent risks of a medi cation such as Vicodin, specifically relevant to his case that it has addiction potential. He says he has never had addiction problems with opioids but acknowledges understanding When I explained to him that there is a potential crossover of addictions from one illegal substance such as methamphetamines to another such as opiates. His exam does suggest a particular painful condition and thus I feel comfortable prescribing a short course of medication such as Vicodin. I am prescribing a short course of short-acting opioid pain medication for this patient. 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 I have discussed that the opioids are for short term therapy only, and will not be refilled from the ED. Departure - Departure Disposition: 01 Home, Self Care Clinical Impression: Cellulitis Qualifiers: Site of cellulitis: extremity Site of cellulitis of extremity: upper extremity Laterality: left Qualified Code(s): L03.114 - Cellulitis of left upper limb Condition: Good Instructions: ED Infec Skin Cellulitis Follow-Up: Sandrita Duval ARNP [Provider Admit Priv/Credential] - Prescriptions: Sulfamethox/Trimeth 800/160 [Bactrim Ds 800/160] 1 each PO BID #19 tablet cephALEXin [Keflex] 500 mg PO Q6H #28 cap HYDROcod/ACETAM 5/325 [[place] 5/325] 1 - 2 tablet PO Q6H PRN #14 tablet PRN Reason: Pain Comments: Follow-up with your primary care provider in 3 to 5 days for reevaluation of the infection. If you do not have a primary care provider, contact your insurance provider, either by phone or online, to discuss options for local outpatient care. If you do not have insurance, you can use the contact information provided elsewhere on these discharge sheets for nurse practitioner Sim[facility] to see if they can accommodate you. I am prescribing a short course of narcotic pain medication for you. These are potentially dangerous and addictive medications that should be used carefully. These medications may constipate you. Take an snef-mku-myleovq stool softener (docusate) twice daily with plenty of water while taking these medications. If you go 24 hours without a bowel movement, take pdzj-kgc-kfmhpzx miralax, per package instructions. Do not drink or drive while taking these medications. If you received narcotic or sedating medications while in the emergency department, do not drive for 24 hours. Store this medication in a safe, secure place and out of reach of children. It is a violation of federal law to give or sell this medication to another person or to use in a manner other than prescribed. The ED will not refill narcotic prescriptions, including prescriptions lost or stolen. To dispose of unwanted medications: 1. [facility] at [address] in [place] has a medication drop box. They accept prescription medications (in pill form) Thursday through Thursday 9:00 a.m. to 5:00 p.m. 2. The [facility] [employer] accepts prescription medications (in pill form only) for disposal year round. Call for more information. 3. Contact the [facility] for the next [facility] sponsored prescription drug collection event. , [id number], or [id number]; Discharge Date/Time: 07/17/22 01:31
[2022-07-17] MEDS ORDERED: HYDROcod/ACET 5/325 Prepack 4 PO STA (00:56)
[2022-07-17] MEDS ORDERED: SULFAMETH/TRIMETH DS 800/160 MG TABLET PO STA (01:02)
[2022-07-17] MEDS ORDERED: cefTRIAXone 500 MG VIAL IM STA (01:02)
[2022-07-17] MEDS ORDERED: LIDOCAINE 1% 2 ML VIAL MC ONE (01:02)
== END 2022-07-17 01:31 | disposition home or self-care (01) ==
LOC: ED 00:08
DX: L03.114 Cellulitis of left upper limb (principal); F17.200 Nicotine dependence, unspecified, uncomplicated
CPT/HCPCS: 96372; 99283; A9270

== ENCOUNTER 2023-03-06 01:27 | Emergency (ER) | payer MEDICAID ==
[2023-03-06 01:40] VITALS: BP 128/73; O2SAT 98
--- NOTE | 2023-03-06 01:41 | ED Physician Documentation ---
PD HPI SKIN - Stated complaint Stated Complaint: REMOVAL OF STITCHES - Chief complaint Chief Complaint: Wound - History obtained from History obtained from: Patient - Additional information Additional information: 22yM presents to the ED for suture evaluation. He had sutures placed 5 days prior after cutting finger at work. denies other issues. 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 : None HEENT: None Psych: ADD/ADHD Musculoskeletal: None Derm: None - Past Surgical History Past Surgical History: Yes Ortho: Other - Present Medications Home Medications: Ambulatory Orders Medication Instructions Recorded Confirmed Atomoxetine HCl [Strattera] 40 mg PO DAILY 03/01/23 03/01/23 - Allergies Allergies/Adverse Reactions: Allergies Allergy/AdvReac Type Severity Reaction Status Date / Time amoxicillin [Amoxicillin] Allergy Rash Verified 03/01/23 02:24 - Social History Does the pt smoke?: Yes Smoking Status: Current every day smoker Does the pt drink ETOH?: No Does the pt have substance abuse?: Yes - Immunizations Immunizations are current?: Yes - POLST Patient has POLST: No PD ED PE NORMAL - Vitals Vital signs reviewed: Yes - General General: Alert and oriented X 3, No acute distress, Well developed/nourished - Derm Derm: Normal color, Warm and dry, Other (laceration to L 2nd distal finger with sutures in place. good cap refill, sensation and movement) Results - Vitals Vitals: Oxygen O2 Source Room air PD Medical Decision Making - ED course ED course: 22yM presents to the ED for possible suture removal. I usually do not remove sutures on the fingers until 14 days of healing, and on inspection it appears the laceration is at risk of dehiscence if removed at this time therefore a sterile bandage was applied and I recommended to wait an additional 9 days prior to removal. return precautions given. Departure - Departure Disposition: 01 Home, Self Care Clinical Impression: Suture check Condition: Good Instructions: Sutr Care Comments: You should keep your stitches in for 7-9 more days. Please follow-up with walk- in clinic to have them removed. Return to the emergency department if you have other concerns. Forms: PCP List, Activity restrictions
== END 2023-03-06 01:51 | disposition home or self-care (01) ==
LOC: ED 01:27
DX: Z48.02 Encounter for removal of sutures (principal); S61.219D Laceration without foreign body of unspecified finger without damage to nail, subsequent encounter; W45.8XXD Other foreign body or object entering through skin, subsequent encounter
CPT/HCPCS: 99281; 99282

== ENCOUNTER 2023-09-25 22:19 | Emergency (ER) | payer MEDICAID ==
[2023-09-25 22:35] VITALS: BP 143/82; O2SAT 99
--- NOTE | 2023-09-25 23:34 | ED Physician Documentation ---
PD HPI HEENT - Stated complaint Stated Complaint: TOOTH PX/ALBERTO - Chief complaint Chief Complaint: General - History obtained from History obtained from: Patient - Additional information Additional information: HPI from patient. Patient c/o dental pain since yesterday. Denies injury. Denies fever. 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 : None HEENT: None Psych: ADD/ADHD Musculoskeletal: None Derm: None - Past Surgical History Past Surgical History: Yes Ortho: Other - Present Medications Home Medications: Ambulatory Orders Medication Instructions Recorded Confirmed Atomoxetine HCl [Strattera] 40 mg PO DAILY 03/01/23 09/25/23 Cefuroxime Axetil [Cefuroxime] 500 mg PO BID #14 tablet 09/25/23 HYDROcod/ACETAM 5/325 [[place] 5/325] 1 - 2 ea PO Q6H PRN #10 tablet 09/26/23 - Allergies Allergies/Adverse Reactions: Allergies Allergy/AdvReac Type Severity Reaction Status Date / Time amoxicillin [Amoxicillin] Allergy Rash Verified 09/25/23 22:22 - Social History Does the pt smoke?: Yes Smoking Status: Current every day smoker Does the pt drink ETOH?: No Does the pt have substance abuse?: Yes - Immunizations Immunizations are current?: Yes - POLST Patient has POLST: No PD ED PE NORMAL - Vitals Vital signs reviewed: Yes - General General: Alert and oriented X 3, No acute distress, Well developed/nourished - HEENT HEENT: Other (overall poor dentition with attrition and wear disproportionate to age. Left maxillary 1st molar is tender to percussion with mild erythema of the adjacent buccal gingiva without edema, fluctuance, or drainage) Results - Vitals Vitals: Oxygen O2 Source Room air PD Medical Decision Making - ED course Complexity details: considered differential, d/w patient ED course: Patient presents with dental pain x 24 hours, atraumatic. Mild gingival erythema and TTP of tooth #14. Given vicodin and cefuroxime (patient says he has diffuse hives with amoxicillin and thus augmentin contraindicated) and prescriptions electronically submitted to patient's pharmacy of choice for both of these medications. Return precautions reviewed. Departure - Departure Disposition: 01 Home, Self Care Clinical Impression: Pain, dental Condition: Good Instructions: ED Tooth Pain Prescriptions: Cefuroxime Axetil [Cefuroxime] 500 mg PO BID #14 tablet HYDROcod/ACETAM 5/325 [[place] 5/325] 1 - 2 ea PO Q6H PRN #10 tablet PRN Reason: Pain Comments: There is some mild redness and swelling adjacent to the tooth that is causing your pain; because a bacterial infection is a potential cause of your symptoms, you were given the first dose of an antibiotic in the emergency department and I have electronically submitted a 1-week prescription for the antibiotic to the [facility] pharmacy in [place]. You are also given Vicodin (narcotic/opiate pain medication) in the ER, and I have also submitted a prescription for this medication to the [facility] pharmacy. Follow-up with a dentist within the next 3 to 5 days. I am prescribing a short course of narcotic pain medication for you. These are potentially dangerous and addictive medications that should be used carefully. These medications may constipate you. Take an gzfb-bak-mfnbuqm stool softener (docusate) twice daily with plenty of water while taking these medications. If you go 24 hours without a bowel movement, take lepg-psu-xunfgws miralax, per package instructions. Do not drink or drive while taking these medications. If you received narcotic or sedating medications while in the emergency department, do not drive for 24 hours. Store this medication in a safe, secure place and out of reach of children. It is a violation of federal law to give or sell this medication to another person or to use in a manner other than prescribed. The ED will not refill narcotic prescriptions, including prescriptions lost or stolen. To dispose of unwanted medications: 1. [facility] at [address] in [place] has a medication drop box. They accept prescription medications (in pill form) Thursday through Thursday 9:00 a.m. to 5:00 p.m. 2. The [facility] Police Department accepts prescription medications (in pill form only) for disposal year round. Call for more information. 3. Contact the [facility] for the next [facility] sponsored prescription drug collection event. , [id number], or [id number]; Forms: PCP List Discharge Date/Time: 09/25/23 23:58
[2023-09-25] MEDS: cefuroxime axetiL 250 MG TABLET PO STA (23:55)
[2023-09-25] MEDS: HYDROcod/ACETAM 5/325 MG TABLET PO STA (23:56)
--- NOTE | 2023-09-26 14:21 | ED Physician Documentation ---
ED Addendum - Addendum Addendum: 09/26/23 14:21 Jay did not have the medication, requested that a new prescription be sent to [facility] in [place]. The prescription was sent to [facility] in [place].
--- NOTE | 2023-09-26 16:58 | ED Physician Documentation ---
ED Addendum - Addendum Addendum: 09/26/23 16:56 I discussed the case several times with the pharmacist at [facility]. He asked us to contact the patient to see if the patient is still on Suboxone. The patient states he has not taken Suboxone since the end of June. The pharmacist at [facility] and then contacted me again stating that he is concerned about this patient having addiction issues. He states he is questioning whether the pain is legitimate or not. I have not personally evaluated this patient, so I am unable to weigh in on the need for narcotics in this patient. The provider who saw him last night has not finished a note, therefore I will have the physician contact [facility] when [facility] to discuss the need for narcotics in this patient.
== END 2023-09-25 23:58 | disposition home or self-care (01) ==
LOC: ED 22:19
DX: K08.89 Other specified disorders of teeth and supporting structures (principal); F17.200 Nicotine dependence, unspecified, uncomplicated
CPT/HCPCS: 99282; 99283; A9270

== ENCOUNTER 2023-10-14 17:54 | Emergency (ER) | payer MEDICAID ==
--- NOTE | 2023-10-14 18:29 | ED Physician Documentation ---
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 : None HEENT: None Psych: ADD/ADHD Musculoskeletal: None Derm: None - Past Surgical History Past Surgical History: Yes Ortho: Other - Present Medications Home Medications: Ambulatory Orders Medication Instructions Recorded Confirmed Atomoxetine HCl [Strattera] 40 mg PO DAILY 03/01/23 10/14/23 - Allergies Allergies/Adverse Reactions: Allergies Allergy/AdvReac Type Severity Reaction Status Date / Time amoxicillin [Amoxicillin] Allergy Rash Verified 10/14/23 18:01 - Social History Does the pt smoke?: Yes Smoking Status: Current every day smoker Does the pt drink ETOH?: No Does the pt have substance abuse?: Yes - Immunizations Immunizations are current?: Yes - POLST Patient has POLST: No PD ED PE NORMAL - Vitals Vital signs reviewed: Yes - General General: Alert and oriented X 3, No acute distress - Extremities Extremities: Other (2 cm laceration on the radial side of the left index finger spanning the DIP. It is Longitudinal with respect to finger without distal neurovascular compromise.) - Neuro Neuro: Alert and oriented X 3 Results - Vitals Vitals: Vital Signs - 24 hr 10/14/23 17:57 Temperature 36.6 C Heart Rate 97 Respiratory 17 Rate Blood Pressure 137/74 H O2 Saturation 97 Oxygen O2 Source Room air Procedures - Laceration (location) Left second finger Length in cm: 1.5 Wound type: Linear, Into subcut fat Neurovascular status: Sensory intact, Motor intact Anesthesia: Lidocaine 1% (Digital block with excellent anesthesia) Wound preparation: Hibiclens, Irrigated copiously NS Skin layer closure: Nylon, Interrupted, Size #-0 - enter number (4-0), Sutures - enter # (3) Other: Tetanus UTD Departure - Departure Disposition: 01 Home, Self Care Clinical Impression: Laceration of finger Qualifiers: Encounter type: initial encounter Finger: index finger Damage to nail status: without damage Foreign body presence: without foreign body Laterality: left Qualified Code(s): S61.211A - Laceration without foreign body of left index finger without damage to nail, initial encounter Condition: Good Record reviewed to determine appropriate education?: Yes Instructions: ED Laceration Hand Comments: Come back for any signs of infection which would include: Redness, swelling, drainage, increased pain, or fevers. You can wash it soap and water. Keep it covered and moist with bacitracin ointment which is available over the counter; avoid neosporin. Follow-up with your physician in about 14 days for suture removal. Forms: PCP List
[2023-10-14 18:52] VITALS: BP 128/84; O2SAT 100
== END 2023-10-14 18:51 | disposition home or self-care (01) ==
LOC: ED 17:54
DX: S61.211A Laceration without foreign body of left index finger without damage to nail, initial encounter (principal); W27.8XXA Contact with other nonpowered hand tool, initial encounter; Y92.009 Unspecified place in unspecified non-institutional (private) residence as the place of occurrence of the external cause; F17.200 Nicotine dependence, unspecified, uncomplicated
CPT/HCPCS: 12001; 99281